=== PATIENT | female | born 1990 | race Caucasian/White ===

== ENCOUNTER 2018-09-15 05:38 | Inpatient (IN) | payer BC ==
[~2018-09-15] VITALS: Ht 162.6 cm; Wt 75.0 kg
[2018-09-15] MEDS ORDERED: NEWBORN KIT ONE (05:53)
[2018-09-15 05:57] VITALS: BP 91/56
[2018-09-15] MEDS ORDERED: LACTATED RINGERS 1,000 ML IVBOLUS ONE (06:00)
[2018-09-15 06:17] LABS: BASOPHILS # (AUTO) 0.03 x10^3/uL (0-0.1); BASOPHILS % (AUTO) 0 % (0-1); EOSINOPHILS # (AUTO) 0.01 x10^3/uL (0-0.4); EOSINOPHILS % (AUTO) 0 % (1-7); LYMPHOCYTES # (AUTO) 1.71 x10^3/uL (1-3.4); LYMPHOCYTES % (AUTO) 21 % (22-44); MD NO; MEAN CORPUSCULAR HEMOGLOBIN 30.9 pg (27.0-34.8); MEAN CORPUSCULAR VOLUME 88.3 fL (80-100); MEAN PLATELET VOLUME 8.1 fL (7.4-10.4); MONOCYTES # (AUTO) 0.61 x10^3/uL (0.2-0.8); MONOCYTES % (AUTO) 8 % (2-9); NEUTROPHILS # (AUTO) 5.75 x10^3/uL (1.8-6.8); NEUTROPHILS % (AUTO) 71 % (42-75); PLATELET COUNT 155 x10^3/uL (130-400); RED BLOOD COUNT 4.08 x10^6/uL (3.82-5.3); RED CELL DISTRIBUTION WIDTH 13.5 % (9.6-15.2)
[2018-09-15] MEDS ORDERED: SODIUM CITRATE/CITRIC ACID 30 ML UDC ONE (07:06)
[2018-09-15] MEDS ORDERED: LACTATED RINGERS 1,000 ML IV SCH ×2 (07:06→07:07)
[2018-09-15] MEDS ORDERED: METOCLOPRAMIDE 5 MG/ML, 2ML ONE (07:07)
[2018-09-15] MEDS ORDERED: morphine SULFATE/PF 0.5 MG/ML, 10ML ONE (07:22)
[2018-09-15] MEDS ORDERED: OXYTOCIN 30U/ 0.9% NaCL 500ML 500 ML ONE ×2 (07:23→10:28)
[2018-09-15] MEDS ORDERED: METOCLOPRAMIDE 5 MG/ML, 2ML IV ONE ×2 (07:30)
[2018-09-15] MEDS ORDERED: SODIUM CITRATE/CITRIC ACID 30 ML UDC PO ONE ×2 (07:30)
[2018-09-15] MEDS ORDERED: ONDANSETRON 2MG/ML, 2ML ONE (08:35)
[2018-09-15] MEDS ORDERED: PHENYLEPHRINE 10 MG/ML ONE (08:35)
[2018-09-15] MEDS ORDERED: OXYTOCIN 10 UNITS/ML, 1ML ONE (08:35)
[2018-09-15] MEDS ORDERED: WATER-INJECTION,STERILE 10 ML IV ONE (08:35)
[2018-09-15] MEDS ORDERED: CEFAZOLIN 1,000 MG ONE (08:35)
[2018-09-15] MEDS ORDERED: EPHEDRINE 50 MG/ML, 1ML ONE (08:35)
[2018-09-15] MEDS: LACTATED RINGERS 1,000 ML IV SCH ×4 (08:38→18:38)
[2018-09-15] MEDS: OXYTOCIN 30U/ 0.9% NaCL 500ML 500 ML IV SCH ×2 (08:51→10:30)
[2018-09-15] MEDS ORDERED: METOCLOPRAMIDE 5 MG/ML, 2ML IV PRN (09:00)
[2018-09-15] MEDS ORDERED: MISOPROSTOL 200 MCG TABLET PR PRN (09:00)
[2018-09-15] MEDS ORDERED: morphine SULFATE 10 MG/ML, 1ML IVPush PRN ×2 (09:00)
[2018-09-15] MEDS ORDERED: ONDANSETRON 2MG/ML, 2ML IV PRN ×2 (09:00→09:30)
[2018-09-15] MEDS ORDERED: CALCIUM CARBONATE 500 MG TAB.CHEW PO PRN (09:00)
[2018-09-15] MEDS ORDERED: RHOGAM FROM BLOOD BANK 1 NOTE EA IM/IV ONE (09:00)
[2018-09-15] MEDS ORDERED: OXYcodone IR 5MG TABLET PO PRN (09:00)
[2018-09-15] MEDS ORDERED: MEASLES,MUMPS&RUBELLA VACC/PF 0.5 ML SQ-VACC PRN (09:00)
[2018-09-15] MEDS ORDERED: ACETAMINOPHEN 325 MG TABLET PO PRN ×2 (09:00)
[2018-09-15] MEDS ORDERED: FENTANYL PF 100 MCG/2ML IV PRN (09:30)
[2018-09-15] MEDS ORDERED: KETOROLAC 30 MG/1 ML ONE (09:30)
[2018-09-15] MEDS ORDERED: KETOROLAC 30 MG/1 ML IV PRN (09:30)
[2018-09-15] MEDS ORDERED: OXYcodone 5 MG/5 ML ORAL.SOL UDC ONE (09:30)
[2018-09-15] MEDS ORDERED: OXYcodone 5 MG/5 ML ORAL.SOL UDC PO PRN (09:30)
[2018-09-15] MEDS: KETOROLAC 30 MG/1 ML IV PRN ×3 (09:33→22:19)
[2018-09-15] MEDS ORDERED: PREN-3 PO (09:39)
[2018-09-15] MEDS ORDERED: MISOPROSTOL 200 MCG TABLET ONE (10:08)
[2018-09-15 11:00] VITALS: BP 90/56
[2018-09-15] MEDS: OXYcodone IR 5MG TABLET PO PRN ×2 (13:13→17:33)
[2018-09-15 15:49] VITALS: BP 94/54
[2018-09-15 16:39] LABS: BASOPHILS # (AUTO) 0.04 x10^3/uL (0-0.1); BASOPHILS % (AUTO) 0 % (0-1); EOSINOPHILS # (AUTO) 0.01 x10^3/uL (0-0.4); EOSINOPHILS % (AUTO) 0 % (1-7); LYMPHOCYTES # (AUTO) 1.42 x10^3/uL (1-3.4); LYMPHOCYTES % (AUTO) 13 % (22-44); MD NO; MEAN CORPUSCULAR HEMOGLOBIN 29.7 pg (27.0-34.8); MEAN CORPUSCULAR HGB CONC 33.2 g/dL (32.4-35.8); MEAN CORPUSCULAR VOLUME 89.6 fL (80-100); MEAN PLATELET VOLUME 8.3 fL (7.4-10.4); MONOCYTES # (AUTO) 0.68 x10^3/uL (0.2-0.8); MONOCYTES % (AUTO) 6 % (2-9); NEUTROPHILS # (AUTO) 8.98 x10^3/uL (1.8-6.8); NEUTROPHILS % (AUTO) 81 % (42-75); PLATELET COUNT 138 x10^3/uL (130-400); RED BLOOD COUNT 3.11 x10^6/uL (3.82-5.3); RED CELL DISTRIBUTION WIDTH 13.3 % (9.6-15.2)
[2018-09-15] MEDS: DOCUSATE 100 MG CAPSULE PO PRN (17:38)
[2018-09-15] MEDS: PRENATAL VIT/IRON/FA 1 EACH TABLET PO SCH (17:38)
[2018-09-15 19:30] VITALS: BP 96/58
[2018-09-16 00:35] VITALS: BP 94/56
[2018-09-16] MEDS: LACTATED RINGERS 1,000 ML IV SCH ×5 (00:38→16:38)
[2018-09-16] MEDS: OXYcodone IR 5MG TABLET PO PRN ×2 (04:10→11:11)
[2018-09-16] MEDS: OXYTOCIN 30U/ 0.9% NaCL 500ML 500 ML IV SCH ×2 (04:38→14:38)
[2018-09-16 07:05] VITALS: BP 89/57
[2018-09-16] MEDS: KETOROLAC 30 MG/1 ML IV PRN (07:40)
[2018-09-16] MEDS: DOCUSATE 100 MG CAPSULE PO PRN ×2 (07:40→19:44)
[2018-09-16] MEDS: PRENATAL VIT/IRON/FA 1 EACH TABLET PO SCH (07:40)
[2018-09-16] MEDS: SIMETHICONE 80 MG CHEW TAB PO PRN ×3 (07:40→23:51)
[2018-09-16] MEDS: FERROUS SULFATE 325 MG TABLET PO SCH ×2 (11:11→19:44)
[2018-09-16] MEDS: OXYcodone/APAP 5/325MG TABLET PO PRN ×3 (14:44→23:51)
[2018-09-16] MEDS ORDERED: BISACODYL 10 MG SUPP PR PRN (17:00)
[2018-09-16] MEDS: IBUPROFEN 600 MG TABLET PO PRN (19:44)
[2018-09-16 19:52] VITALS: BP 97/61
[2018-09-17] MEDS: IBUPROFEN 600 MG TABLET PO PRN ×2 (02:53→09:37)
[2018-09-17] MEDS: OXYcodone/APAP 5/325MG TABLET PO PRN (07:24)
[2018-09-17] MEDS: FERROUS SULFATE 325 MG TABLET PO SCH (07:24)
[2018-09-17] MEDS: SIMETHICONE 80 MG CHEW TAB PO PRN (07:24)
[2018-09-17] MEDS: DOCUSATE 100 MG CAPSULE PO PRN (07:24)
[2018-09-17 07:25] VITALS: BP 93/62
[2018-09-17 07:30] VITALS: BP 115/77
[2018-09-17] MEDS ORDERED: OXYC-302 PO (09:29)
[2018-09-17] MEDS ORDERED: IBUP-1222 PO (09:29)
[2018-09-17] MEDS ORDERED: FERR324T5 PO (09:30)
== END 2018-09-17 11:37 | disposition home or self-care (01) | DRG 787 ==
LOC: LDIP 05:38 → 2NW 10:54
PROVIDERS: ADMIT Obstetrics & Gynecology; ATTEND Obstetrics & Gynecology
PROC: 10D00Z1 Extraction of Products of Conception, Low, Open Approach (ICD-10-PCS; principal; 2018-09-15)
DX: O34.211 Maternal care for low transverse scar from previous cesarean delivery (principal); D62 Acute posthemorrhagic anemia; O99.03 Anemia complicating the puerperium; Z37.0 Single live birth; Z90.89 Acquired absence of other organs; Z80.3 Family history of malignant neoplasm of breast; Z80.7 Family history of other malignant neoplasms of lymphoid, hematopoietic and related tissues; Z3A.39 39 weeks gestation of pregnancy
CPT/HCPCS: 36415; 85025; 86850; 86900; G0378; J0690; J1885; J2274; J2405; J2370; J2590; J2765; J7120